=== PATIENT | female | born 1930 | race Caucasian/White ===

== ENCOUNTER 2016-11-11 15:20 | Inpatient (IN) | payer MEDICARE, OTHER ==
[~2016-11-11] VITALS: Ht 152.4 cm; Wt 91.4 kg
--- NOTE | ~2016-11-11 | DS ---
PATIENT'S NAME: [facility] AGE: 86 Y [address] [place]: [facility] [place] [place], [place] [address] LOCATION: [facility] ADMIT DATE: 11/09/2016 Discharge Summary DISCHARGE DATE: 11/11/2016 FAMILY PHYSICIAN: Rad Maldonado MD ATTENDING PHYSICIAN: Luis Norton PRIMARY DIAGNOSIS: Left tricompartmental primary osteoarthritis of knee. SECONDARY DIAGNOSES: 1. Hypertension. 2. Hypothyroidism. 3. Hypocholesterolemia. 4. Depression. 5. Urge and stress incontinence. 6. Obesity. PROCEDURE: Left total knee arthroplasty. HISTORY: This is an 86-year-old female patient, who presented with advanced left knee primary tricompartmental osteoarthritis associated with severely compromised activities of daily living. The patient has decided to proceed with total knee arthroplasty after having been thoroughly counseled regarding the risks, benefits, limitations, and alternatives. Please refer to the outpatient clinical notes and admission history and physical for this patient. HOSPITAL COURSE: The patient underwent a left total knee arthroplasty on November 09, 2016 without complication. The patient had spinal anesthesia with sedation and peripheral nerve block and local anesthetic were utilized. The patient received 24 hours of perioperative prophylactic antibiotics and remained hemodynamically stable, neurovascularly intact throughout the entire hospital course. The postoperative prophylactic deep vein thrombosis prophylaxis consisted of Xarelto, early mobilization, and pneumatic compression devices. Daily physical therapy for gait training, transfer training, range of motion, and quadriceps isometric exercises were received. The patient progressed well in physical therapy. On the day of discharge on November 11, 2016, the incision at the knee was healing well and showed no signs of infection. DISPOSITION: Transitional care unit. DISCHARGE ACTIVITY: The patient is to bear weight as tolerated with range of motion and quadriceps isometric exercises as instructed. The operative extremity is to be elevated 90% of the day. There is to be a Mepilex dressing placed over the surgical incision until followup in Dr. Norton's office. Dr. Norton is to be notified immediately if there is any increased pain, fever, PATIENT'S NAME: FR[facility] AGE: 86 Y [address] [place]OM: [facility] [place] [place], [place] [address] LOCATION: [facility] ADMIT DATE: 11/09/2016 Discharge Summary DISCHARGE DATE: 11/11/2016 FAMILY PHYSICIAN: Rad Maldonado MD ATTENDING PHYSICIAN: Luis Norton chills, erythema, or drainage. DISCHARGE MEDICATIONS: New medications: 1. Xarelto 10 mg p.o. daily by 10 days. 2. Diazepam 2.5 mg p.o. every 6 hours as needed for muscle spasms. 3. She is to continue her [place] 5/325 mg 1-2 tabs every 4 hours as needed for pain. 4. She is on MiraLax 17 g p.o. b.i.d. to be held for loose stools. 5. Colace 100 mg p.o. b.i.d. to be held for loose stools. She was otherwise instructed to continue all her other preadmission medications as instructed by her internal medicine doctor. FOLLOWUP: The patient is to follow up in Dr. Norton's office two weeks postop for initial postoperative evaluation and x-rays of the left knee at that time. VALENTINA MILLER PA-C FOR MD YANELY IRWIN/augustus /[id number] d: 11/24/16 0804 t: 12/10/16 1302, DISCHARGE SUMMARY
--- NOTE | ~2016-11-11 | DS ---
PATIENT'S NAME: [facility] AGE: 86 Y [address] ROOM: [facility] [place] [place], [place] [address] LOCATION: [facility] ADMIT DATE: 11/09/2016 Discharge Summary DISCHARGE DATE: 11/11/2016 FAMILY PHYSICIAN: Rad Maldonado MD ATTENDING PHYSICIAN: Luis Norton PRIMARY DIAGNOSIS: Left tricompartmental primary osteoarthritis of knee. SECONDARY DIAGNOSES: 1. Hypertension. 2. Hypothyroidism. 3. Hypocholesterolemia. 4. Depression. 5. Urge and stress incontinence. 6. Obesity. PROCEDURE: Left total knee arthroplasty. HISTORY: This is an 86-year-old female patient, who presented with advanced left knee primary tricompartmental osteoarthritis associated with severely compromised activities of daily living. The patient has decided to proceed with total knee arthroplasty after having been thoroughly counseled regarding the risks, benefits, limitations, and alternatives. Please refer to the outpatient clinical notes and admission history and physical for this patient. HOSPITAL COURSE: The patient underwent a left total knee arthroplasty on November 09, 2016 without complication. The patient had spinal anesthesia with sedation and peripheral nerve block and local anesthetic were utilized. The patient received 24 hours of perioperative prophylactic antibiotics and remained hemodynamically stable, neurovascularly intact throughout the entire hospital course. The postoperative prophylactic deep vein thrombosis prophylaxis consisted of Xarelto, early mobilization, and pneumatic compression devices. Daily physical therapy for gait training, transfer training, range of motion, and quadriceps isometric exercises were received. The patient progressed well in physical therapy. On the day of discharge on November 11, 2016, the incision at the knee was healing well and showed no signs of infection. DISPOSITION: Transitional care unit. DISCHARGE ACTIVITY: The patient is to bear weight as tolerated with range of motion and quadriceps isometric exercises as instructed. The operative extremity is to be elevated 90% of the day. There is to be a Mepilex dressing placed over the surgical incision until followup in Dr. Norton's office. Dr. Norton is to be notified immediately if there is any increased pain, fever, PATIENT'S NAME: [facility] AGE: 86 Y [address] ROOM: [facility] [place] [place], [place] [address] LOCATION: [facility] ADMIT DATE: 11/09/2016 Discharge Summary DISCHARGE DATE: 11/11/2016 FAMILY PHYSICIAN: Rad Maldonado MD ATTENDING PHYSICIAN: Luis Norton chills, erythema, or drainage. DISCHARGE MEDICATIONS: New medications: 1. Xarelto 10 mg p.o. daily by 10 days. 2. Diazepam 2.5 mg p.o. every 6 hours as needed for muscle spasms. 3. She is to continue her [place] 5/325 mg 1-2 tabs every 4 hours as needed for pain. 4. She is on MiraLax 17 g p.o. b.i.d. to be held for loose stools. 5. Colace 100 mg p.o. b.i.d. to be held for loose stools. She was otherwise instructed to continue all her other preadmission medications as instructed by her internal medicine doctor. FOLLOWUP: The patient is to follow up in Dr. Norton's office two weeks postop for initial postoperative evaluation and x-rays of the left knee at that time. VALENTINA MILLER PA-C FOR MD MARTÍN IRWINW/augustus /[id number] d: 11/24/16 0804 t: 12/10/16 1440, DISCHARGE SUMMARY
--- NOTE | ~2016-11-11 | DS ---
PATIENT'S NAME: FR[facility] AGE: 86 Y [address] ROOM: [place] [address] LOCATION: [facility] ADMIT DATE: 11/11/2016 Discharge Summary DISCHARGE DATE: 12/09/2016 FAMILY PHYSICIAN: Rda Maldonado MD ATTENDING PHYSICIAN: Luis Norton ADMITTING DIAGNOSIS: Left tricompartmental primary osteoarthritis, status post left total knee arthroplasty. DISCHARGE DIAGNOSIS: Left tricompartmental primary osteoarthritis, status post left total knee arthroplasty. SECONDARY DIAGNOSES: 1. Hypertension. 2. Hypothyroidism. 3. Hypercholesterolemia. 4. Depression. 5. Urge and stress incontinence. 6. Obesity. CONSULTATIONS: Hospitalist Service for medical management. HISTORY OF PRESENT ILLNESS: The patient is an 86-year-old female who underwent a left total knee arthroplasty on November 09, 2016. The patient was found to be stable to discharge to the TCU for further rehab on November 11, 2016. HOSPITAL COURSE: The patient was admitted to the TCU on November 11, 2016. During her admission, the patient did complain about some radicular pain, first in her right lower extremity, then complaining of her left lower extremity. This did improve prior to her discharge. The patient also complained about left ankle and then left foot pain. X-rays during her admission showed some osteoarthritis. Her discomfort did improve prior to discharge. The patient's analgesia was adequate. She worked with Physical Therapy and Occupational Therapy and did progress slowly, but on December 09, 2016, it was determined the patient was stable to be discharged home. DISCHARGE INSTRUCTIONS: The patient is to be weightbearing as tolerated on her left lower extremity. She is to follow a cardiac diet. When the patient follows up with her PCP, she is to have a CBC and a BMP done. DISCHARGE MEDICATIONS: The patient is to continue her, 1. Atenolol 50 mg p.o. daily. 2. Levothyroxine 50 mcg p.o. daily. 3. Loratadine 10 mg p.o. daily. PATIENT'S NAME: [facility] AGE: 86 Y [address] ROOM: [place] [address] LOCATION: [facility] ADMIT DATE: 11/11/2016 Discharge Summary DISCHARGE DATE: 12/09/2016 FAMILY PHYSICIAN: Rad Maldonado MD ATTENDING PHYSICIAN: Luis Norton 4. Gabapentin. The patient was also discharged on new medications of, 1. Colace 100 mg p.o. twice a day, hold for loose stools. 2. Neurontin 300 mg p.o. b.i.d. 3. Zocor 40 mg p.o. daily. 4. Tramadol 100 mg p.o. b.i.d. 5. MiraLAX 17 g p.o. b.i.d. p.r.n. constipation. 6. Melatonin 3 mg p.o. at h.s. 7. [place] 5/325 mg 1-2 tabs p.o. q.4 hours p.r.n., moderate to severe pain. 8. The patient is to be on aspirin 81 mg p.o. daily by 30 days. 9. Milk of magnesia 400 mg per 5 mL, 30 mL 3 times a day p.r.n. constipation. 10. Mirabegron 25 mg p.o. daily. 11. Dulcolax suppository 10 mg rectally per day p.r.n. constipation. 12. Effexor XR 75 mg p.o. daily. 13. Tylenol Extra Strength 500 mg p.o. q.4 hours. FOLLOWUP: The patient has a followup with Dr. Norton on December 24 at 9:20 p.m. for initial postop evaluation and repeat x-rays. The patient is also to follow up with Dr. Maldonado on December 19 at 09:45 for followup with CBC and BMP. The patient's discharge status is good. VALENTINA MILLER PA-C FOR MD YANELY IRWIN/augustus /[id number] d: 12/18/16 0153 t: 12/21/16 0844, DISCHARGE SUMMARY
--- NOTE | ~2016-11-11 | DS ---
PATIENT'S NAME: [facility] AGE: 86 Y [address] [place] [facility] [place] [place], [place] [address] LOCATION: [facility] ADMIT DATE: 11/09/2016 Discharge Summary DISCHARGE DATE: 11/11/2016 FAMILY PHYSICIAN: Rad Maldonado MD ATTENDING PHYSICIAN: Luis Norton PRIMARY DIAGNOSIS: Left tricompartmental primary osteoarthritis of knee. SECONDARY DIAGNOSES: 1. Hypertension. 2. Hypothyroidism. 3. Hypocholesterolemia. 4. Depression. 5. Urge and stress incontinence. 6. Obesity. PROCEDURE: Left total knee arthroplasty. HISTORY: This is an 86-year-old female patient, who presented with advanced left knee primary tricompartmental osteoarthritis associated with severely compromised activities of daily living. The patient has decided to proceed with total knee arthroplasty after having been thoroughly counseled regarding the risks, benefits, limitations, and alternatives. Please refer to the outpatient clinical notes and admission history and physical for this patient. HOSPITAL COURSE: The patient underwent a left total knee arthroplasty on November 09, 2016 without complication. The patient had spinal anesthesia with sedation and peripheral nerve block and local anesthetic were utilized. The patient received 24 hours of perioperative prophylactic antibiotics and remained hemodynamically stable, neurovascularly intact throughout the entire hospital course. The postoperative prophylactic deep vein thrombosis prophylaxis consisted of Xarelto, early mobilization, and pneumatic compression devices. Daily physical therapy for gait training, transfer training, range of motion, and quadriceps isometric exercises were received. The patient progressed well in physical therapy. On the day of discharge on November 11, 2016, the incision at the knee was healing well and showed no signs of infection. DISPOSITION: Transitional care unit. DISCHARGE ACTIVITY: The patient is to bear weight as tolerated with range of motion and quadriceps isometric exercises as instructed. The operative extremity is to be elevated 90% of the day. There is to be a Mepilex dressing placed over the surgical incision until followup in Dr. Norton's office. Dr. Norton is to be notified immediately if there is any increased pain, fever, PATIENT'S NAME: [facility] AGE: 86 Y [address] [place]OM: [facility] [place] [place], [place] [address] LOCATION: [facility] ADMIT DATE: 11/09/2016 Discharge Summary DISCHARGE DATE: 11/11/2016 FAMILY PHYSICIAN: Rad Maldonado MD ATTENDING PHYSICIAN: Luis Norton chills, erythema, or drainage. DISCHARGE MEDICATIONS: New medications: 1. Xarelto 10 mg p.o. daily by 10 days. 2. Diazepam 2.5 mg p.o. every 6 hours as needed for muscle spasms. 3. She is to continue her [place] 5/325 mg 1-2 tabs every 4 hours as needed for pain. 4. She is on MiraLax 17 g p.o. b.i.d. to be held for loose stools. 5. Colace 100 mg p.o. b.i.d. to be held for loose stools. She was otherwise instructed to continue all her other preadmission medications as instructed by her internal medicine doctor. FOLLOWUP: The patient is to follow up in Dr. Norton's office two weeks postop for initial postoperative evaluation and x-rays of the left knee at that time. VALENTINA MILLER PA-C FOR MD YANELY IRWIN/augustus /[id number] d: 11/24/16 0804 t: 12/10/16 1300, DISCHARGE SUMMARY
[~2016-11-11 15:20] MED LIST: DITROPAN XL10 MG PO; EFFEXOR XR75 MG PO; LEVOTHROID (SY50 MCG PO; LORATADINE10 MG PO; MILK OF MA400 MG/5 M PO; MYRBETRIQ25 MG PO; NORCO 5-325 TA1 EACH PO; TENORMIN50 MG PO; THERAGRAN-M1 TAB PO; TUMS REGULAR ST1 TAB PO; TYLENOL EXTRA500 MG PO; ULTRAM50 MG PO; ZOCOR40 MG PO
[2016-11-20 15:41] LABS: BILIRUBIN URINE NEGATIVE (NEGATIVE); BLOOD URINE NEGATIVE /UL (NEGATIVE); COLOR URINE YELLOW (YELLOW); GLUCOSE URINE NEGATIVE (NEGATIVE); KETONE URINE NEGATIVE (NEGATIVE); LEUKOCYTES URINE 500 /UL (NEGATIVE); NITRITE URINE NEGATIVE (NEGATIVE); PROTEIN URINE NEGATIVE (NEGATIVE); SPEC GRAVITY URINE 1.015 (1.003-1.035); TURBIDITY URINE 2+ (CLEAR); UROBILINOGEN URINE NORMAL (NORMAL)
[2016-11-20 15:52] LABS: RBC URINE RARE #/HPF (NEGATIVE); WBC URINE FULL FIELD #/HPF (NEGATIVE)
[2016-11-20 15:53] LABS: BACTERIA URINE MANY (NEGATIVE); MUCUS URINE NEGATIVE (NEGATIVE)
[2016-11-26 09:29] LABS: ANION GAP 9.2 (10.0-19.0); BLOOD UREA NITROGEN 24 mg/dL (6-24); CALCIUM 8.5 mg/dL (8.5-10.5); CHLORIDE 102 mMol/L (96-110); CO2 33 mMol/L (22-32); CREATININE 0.8 mg/dL (0.5-1.1); ESTIMATED GFR (MDRD EQUATION) > 60; POTASSIUM 4.2 mMol/L (3.7-5.1); SODIUM 140 mMol/L (135-145)
[2016-11-29 06:55] LABS: ANION GAP 8.7 (10.0-19.0); BLOOD UREA NITROGEN 28 mg/dL (6-24); CALCIUM 8.5 mg/dL (8.5-10.5); CHLORIDE 100 mMol/L (96-110); CREATININE 0.8 mg/dL (0.5-1.1); ESTIMATED GFR (MDRD EQUATION) > 60; POTASSIUM 4.7 mMol/L (3.7-5.1); SODIUM 139 mMol/L (135-145)
[2016-11-29 06:56] LABS: CO2 35 mMol/L (22-32)
[2016-12-09] MEDS ORDERED: OSCAL500 MG PO (09:42)
[2016-12-09] MEDS ORDERED: COLACE100 MG PO (09:43)
[2016-12-09] MEDS ORDERED: VITAMIN D2000 UNIT PO (09:43)
[2016-12-09] MEDS ORDERED: NEURONTIN300 MG PO (09:44)
[2016-12-09] MEDS ORDERED: MELATIN3 MG PO (09:45)
[2016-12-09] MEDS ORDERED: MIRALAX17 GM PO (09:47)
[2016-12-09] MEDS ORDERED: DULCOLAX10 MG R (09:48)
[2016-12-09] MEDS ORDERED: ASPIRIN LO-DOSE81 MG PO (09:49)
== END 2016-12-09 14:00 | disposition disaster alternative care site (69) | DRG 560 ==
LOC: GSNF 15:20
PROVIDERS: Nurse Practitioner Family; Physician Assistant; Physician Assistant Surgical; ADMIT Orthopaedic Surgery Adult Reconstructive Orthopaedic Surgery
DX: Z47.1 Aftercare following joint replacement surgery (principal); E44.1 Mild protein-calorie malnutrition; R06.00 Dyspnea, unspecified; I10 Essential (primary) hypertension; F32.9 Major depressive disorder, single episode, unspecified; B36.9 Superficial mycosis, unspecified; M54.10 Radiculopathy, site unspecified; Z96.652 Presence of left artificial knee joint; E03.9 Hypothyroidism, unspecified; E66.9 Obesity, unspecified; Z68.38 Body mass index [BMI] 38.0-38.9, adult; E78.00 Pure hypercholesterolemia, unspecified; N39.46 Mixed incontinence; N32.81 Overactive bladder; G47.00 Insomnia, unspecified; M79.672 Pain in left foot
CPT/HCPCS: A9270; J1885